=== PATIENT | male | born 1990 | race Caucasian/White ===

== ENCOUNTER 2017-07-23 20:26 | Emergency (ER) | payer SELFPAY ==
[2017-07-23 20:35] VITALS: BP 113/75; BMI 18.4
--- NOTE | 2017-07-23 21:40 | DR.GENAD ---
HPI - PCP Primary Care Physician: Christian - HPI Comment HPI Comment: SWELLING AND PAIN SINCE IT HAPPEN. ROM INTACT. - Complaint/Symptoms Chief Complaint Doctors Comments: CRUSH INJURY LEFT FOREARM SUSTAINED YESTERDAY WHEN CAR DOOR CLOSE ON PATIENTS FOREARM. Chief Complaint:: left forearm edematous and warm to touch; possible fx Self Treatment fo Chief Complaint: ibuprofen x 3 hours ago - Nurses notes reviewed Nurses Notes Review: Yes - Source History Provided: Patient - Mode of Arrival Mode of Arrival: Ambulatory - Timing Onset of Chief Complaint: 07/22/17 Came on: Suddenly - Duration Duration: Constant Duration: Days - Severity Severity: Moderate PMH - PMH Past Medical History: No Past Medical History: Depression Past Medical History Comment: pancreatitis Past Surgical History: No - Family History History of Family Medical Conditions: Yes Family Medical History: Diabetes Mellitus, Hypertension - Social History Does patient currently use any type of tobacco product: Yes Have you used tobacco products in the last 12 months: Yes Type of Tobacco Use: Smokeless Alcohol Use: None Do you use any recreational Drugs:: No Lives With: Mom Lives Where: Home - infectious screening In the last 2 months have you had wt loss of >10#?: NO Have you had fever, night sweats or hemotysis?: No Have you traveled outside the country in the last 6 months?: No Isolation: Standard ROS - Review of Systems Constitutional: No Symptoms Reported Eyes: No Symptoms Reported ENTM: No Symptoms Reported Respiratoy: No Symptoms Reported Cardiovascular: No Symptoms Reported Gastrointestinal/Abdominal: No Symptoms Reported Genitourinary: No Symptoms Reported Neurological: No Symptoms Reported Musculoskeletal: Muscle Pain, Left, Forearm (SWELLING) Integumentary: Change in Color Hematologic/Lymphatic: No Symptoms Reported Endocrine: No Symptoms Reported All Other Systems: Reviewed and Negative PE - Vital Signs Vitals: Pulse Rate 86 Respiratory Rate 22 Blood Pressure 113/75 O2 Sat by Pulse Oximetry 100 - General Limitations: No Limitations General Appearance: Alert - Head Head Exam: Normal Inspection - Eyes Eye exam: Normal Appearance - ENT ENT Exam: Normal External Ear Exam - Neck Neck Exam: Trachea Midline - Chest Chest Inspection: Symmetric Chest Wall Rise - Respiratory Respiratory Exam: Normal Lung Sounds Bilat Respiratory Exam: Bilateral Clear to Auscultation - Cardiovascular Cardiovascular Exam: Regular Rate, Normal Rhythm, Normal Heart Sounds - Abdominal Exam Abdominal Exam: Normal Bowel Sounds, Soft. negative: Tenderness - Extremities Extremities Exam: Full ROM, Tenderness (LT FOREARM) - Back Back Exam: Normal Inspection - Neurologic Neurological Exam: Alert, Oriented X3 - Psychiatric Psychiatric Exam: Normal Affect, Normal Mood - Skin Skin Exam: Erythema MDM - Differential Diagnosis Differential Diagnosis: CONTUSION, MUSCLE STRAIN, FRACTURE LEFT FOREARM. Course - Treatment Treatment: SEE ORDERS. ARM SLING APPLIED IN ED. - Education/Counseling Education/Counseling: Patient, Education Educated On: Diagnosis, Needs for Follow Up ROR - XRAY XRAY Interpreted by: Radiologist XRAY Findings: REPORT DISCUSS WITH PATIENT. - Diagnosis Discharge Problem: Contusion of left forearm Qualifiers: Encounter type: initial encounter Qualified Code(s): S50.12XA - Contusion of left forearm, initial encounter Muscle strain of forearm Qualifiers: Encounter type: initial encounter Laterality: unspecified laterality Qualified Code(s): S56.919A - Strain of unspecified muscles, fascia and tendons at forearm level, unspecified arm, initial encounter Crushing injury of forearm, left Qualifiers: Encounter type: initial encounter Qualified Code(s): S57.82XA - Crushing injury of left forearm, initial encounter - Discharge Plan Condition: Stable Prescriptions: Ibuprofen [MOTRIN TAB 600 MG *] 600 mg PO TID PRN #20 tab PRN Reason: Pain/Inflammation - Follow ups/Referrals Follow ups/Referrals: Tin Gonzales [Primary Care Provider] - 2 days - Instructions Instructions: Musculoskeletal Pain Additional Instructions: RETURN TO ED IF WORSE
--- NOTE | 2017-07-23 22:48 | RAD ---
Left forearm, AP and lateral Indication: Arm pain after injury Findings: No cortical disruption or malalignment of the radius or ulna. No significant soft tissue ab normality. Impression: No acute fracture or subluxation of the left forearm. Reported By:
== END 2017-07-23 23:05 | disposition home or self-care (01) ==
LOC: ER 20:38
DX: S56.919A Strain of unspecified muscles, fascia and tendons at forearm level, unspecified arm, initial encounter (principal); S57.82XA Crushing injury of left forearm, initial encounter; X58.XXXA Exposure to other specified factors, initial encounter; Y92.9 Unspecified place or not applicable
CPT/HCPCS: 73090; 99282; 99283

== ENCOUNTER 2017-10-17 18:14 | Emergency (ER) | payer SELFPAY ==
[2017-10-17 18:32] VITALS: BMI 17.7
--- NOTE | 2017-10-17 18:54 | DR.GENAD ---
HPI - PCP Primary Care Physician: NFD - Complaint/Symptoms Chief Complaint Doctors Comments: Patient admits to dysuria and penile discharge for one week. He thinks he has a STD. He admits to having unprotected sexual encounters. Chief Complaint:: PT STATES " I THINK I MAY HAVE AN STD MY INSIDES ARE BURNING AND I HAVE BEEN HAVING A YELLOW MUCOUS DRAINAGE AND HE HAD A FEVER AND LAID UP ON THE BED ALL WEEK". - Source History Provided: Patient - Mode of Arrival Mode of Arrival: Ambulatory - Timing Onset of Chief Complaint: 10/14/17 PMH - PMH Past Medical History: No Past Medical History: Depression Past Surgical History: No - Family History History of Family Medical Conditions: No Family Medical History: Diabetes Mellitus, Hypertension - Social History Does patient currently use any type of tobacco product: No Have you used tobacco products in the last 12 months: No Type of Tobacco Use: Smokeless Does any household member use tobacco: No Alcohol Use: None Do you use any recreational Drugs:: No Lives With: Family Lives Where: Home - infectious screening In the last 2 months have you had wt loss of >10#?: NO Have you had fever, night sweats or hemotysis?: No Have you traveled outside the country in the last 6 months?: No Isolation: Standard ROS - Review of Systems Eyes: No Symptoms Reported ENTM: No Symptoms Reported Respiratoy: No Symptoms Reported Cardiovascular: No Symptoms Reported Gastrointestinal/Abdominal: No Symptoms Reported Genitourinary: No Symptoms Reported Neurological: No Symptoms Reported Musculoskeletal: No Symptoms Reported Integumentary: No Symptoms Reported Hematologic/Lymphatic: No Symptoms Reported Endocrine: No Symptoms Reported Psychiatric: No Symptoms Reported All Other Systems: Reviewed and Negative PE - Vital Signs Vitals: Temperature 96.9 F Pulse Rate 88 Respiratory Rate 18 Blood Pressure 115/75 O2 Sat by Pulse Oximetry 100 - General General Appearance: Alert, In No Apparent Distress - Head Head Exam: Normal Inspection, Atraumatic - Eyes Eye exam: Normal Appearance, PERRL, EOMI - ENT ENT Exam: Normal Exam External Ear Exam: Normal External Inspection TM/Canal Exam: Bilateral Normal Nose Exam: Normal Nose Exam Mouth Exam: Normal Inspection Throat Exam: Normal Inspection - Neck Neck Exam: Normal Inspection, Full ROM - Chest Chest Inspection: Normal Inspection - Respiratory Respiratory Exam: Normal Lung Sounds Bilat Respiratory Exam: Bilateral Clear to Auscultation - Cardiovascular Cardiovascular Exam: Regular Rate, Normal Rhythm - Abdominal Exam Abdominal Exam: Normal Inspection, Normal Bowel Sounds Abdominal Tenderness: negative: RUQ, RLQ, LUQ, LLQ, Epigastrium, Suprapubic, Diffuse, Mild, Moderate, Severe, Other - Extremities Extremities Exam: Normal Inspection, Full ROM - Back Back Exam: Normal Inspection - Neurologic Neurological Exam: Alert, Oriented X3, CN II-XII Intact - Psychiatric Psychiatric Exam: Normal Affect - Skin Skin Exam: Warm, Dry, Intact Course - Reevaluation 1st: Unchanged ROR - Labs Reviewed Laboratory Results Reviewed?: Yes (Urine:WBC 30-40, Leuk Esterace 3+, 2+blood) Laboratory: Specimen Type Clean catch urine 10/17/17 18:55 Urine Color Yellow (YELLOW) 10/17/17 18:55 Urine Appearance Hazy (CLEAR) 10/17/17 18:55 Urine pH 6.0 (5.0 - 8.0) 10/17/17 18:55 Ur Specific [place] 1.025 (1.000-1.030) 10/17/17 18:55 Urine Protein 2+ (NEGATIVE) 10/17/17 18:55 Urine Glucose (UA) Negative (NEGATIVE) 10/17/17 18:55 Urine Ketones Negative (NEGATIVE) 10/17/17 18:55 Urine Occult Blood 2+ (NEGATIVE) 10/17/17 18:55 Urine Nitrite Negative (NEGATIVE) 10/17/17 18:55 Urine Bilirubin Negative (NEGATIVE) 10/17/17 18:55 Urine Urobilinogen 1+ (NORMAL) 10/17/17 18:55 Ur Leukocyte Esterase 3+ (NEGATIVE) 10/17/17 18:55 Urine RBC 0-2 /HPF (NEGATIVE) 10/17/17 18:55 Urine WBC 30-40 /HPF (NEGATIVE) 10/17/17 18:55 Ur Squamous Epith Cells Negative /HPF (NEGATIVE) 10/17/17 18:55 Urine Bacteria Trace /HPF (NEGATIVE) 10/17/17 18:55 Ur Culture Indicated? Yes/culture set up 10/17/17 18:55 - Diagnosis Discharge Problem: Presumptive STD UTI (urinary tract infection) Qualifiers: Urinary tract infection type: acute cystitis Hematuria presence: with hematuria Qualified Code(s): N30.01 - Acute cystitis with hematuria - Discharge Plan Condition: Stable - Follow ups/Referrals Follow ups/Referrals: NFD,None [Primary Care Provider] - 3 days - Instructions
[2017-10-17 19:03] LABS: BILIRUBIN,URINE NEGATIVE (NEGATIVE); BLOOD/HEMOGLOBIN,URINE 2+ (NEGATIVE); GLUCOSE, URINE NEGATIVE (NEGATIVE); KETONES,URINE NEGATIVE (NEGATIVE); LEUKOCYTE ESTERASE ,URINE 3+ (NEGATIVE); NITRITES,URINE NEGATIVE (NEGATIVE); PROTEIN,URINE 2+ (NEGATIVE); UROBILINOGEN,URINE 1+ (NORMAL)
[2017-10-17 19:10] LABS: APPEARANCE,URINE HAZY (CLEAR); BACTERIA,URINE TRACE /HPF (NEGATIVE); COLOR,URINE YELLOW (YELLOW); RBC,URINE 0-2 /HPF (NEGATIVE); SQUAMOUS EPITHELIAL CELL,UR NEGATIVE /HPF (NEGATIVE)
[2017-10-17] MEDS ORDERED: ROCEPHIN VIAL 500 MG IM ONE (19:57)
[2017-10-17] MEDS ORDERED: ROCEPHIN VIAL 500 MG ONE (20:00)
[2017-10-17 20:19] VITALS: BP 123/86
[2017-10-21 07:39] LABS: HCV VIRAL LOG <1.2 log IU
== END 2017-10-17 20:20 | disposition home or self-care (01) ==
LOC: ER 18:27
DX: N30.01 Acute cystitis with hematuria (principal)
CPT/HCPCS: 81001; 87086; 87522; 96372; 99282; J0696

== ENCOUNTER 2018-10-14 19:52 | Inpatient (IN) ==
[2018-10-14] MEDS ORDERED: NS 1000 ML 1,000 ML IV ONE (21:01)
[2018-10-14] MEDS ORDERED: NS 1000 ML 1,000 ML ONE (21:01)
[2018-10-14] MEDS ORDERED: VANCOMYCIN HCL 1 GM VIAL 1 G in D5W 250 ML IV 250 ML IV ONE (21:50)
[2018-10-14] MEDS ORDERED: VANCOMYCIN 1 GRAM PREMIX (ADDVANTAGE) 250 ML IV ONE (21:52)
--- NOTE | 2018-10-14 21:56 | DR.EXTPAIN ---
HPI Time seen Time Seen by Provider: 10/14/18 21:21 PCP Primary Care Physician: ARMANDO HPI Comment HPI Comment: STREAKING UP RUE NOTED. PATIENT IN PAIN. RUNNING FEVER AT HOME. Complaint/Symptoms Chief Complaint Doctor Comments: ABSCESS RIGHT HAND, SICE OF AN EGG AND CELLULITIS RT HAND AND FOREARM TIMES 4 DAYS. Chief Complaint:: PT HAS ABCESS TO RIGHT HAND FOR 3 OR 4 DAYS Self Treatment fo Chief Complaint: LANCED IT AT HOME TO GET PUSS OUT Nurses notes reviewed Nurses Notes Review: Yes Source History Provided: Patient Mode of arrival Mode of Arrival: Ambulatory Timing Onset of Chief Complaint: 10/11/18 Context History of: None Associated signs and symptoms Associated Signs and Symptoms: Pain, Fever, Swelling and Headache PMH PMH Past Medical History: No Past Surgical History: No Family History History of Family Medical Conditions: Yes Family Medical History: Diabetes Mellitus and Hypertension Social History Does patient currently use any type of tobacco product: Yes Have you used tobacco products in the last 12 months: Yes Type of Tobacco Use: Smokeless Does any household member use tobacco: No Alcohol Use: None Do you use any recreational Drugs:: Yes (THC) Lives With: Family Lives Where: Home infectious screening In the last 2 months have you had wt loss of >10#?: NO Have you had fever, night sweats or hemotysis?: No Have you traveled outside the country in the last 6 months?: No Isolation: Standard ROS Review of Systems Constitutional: Fever and Fatigue Eyes: No Symptoms Reported ENTM: No Symptoms Reported Respiratoy: No Symptoms Reported and Wheezing Gastrointestinal/Abdominal: No Symptoms Reported Genitourinary: No Symptoms Reported Neurological: No Symptoms Reported Musculoskeletal: Right, Elbow, Forearm, Wrist and Hand Integumentary: Other (ABSCESS, SIZEE OF EGG AND CELLULITIS FROM RT HAND TO RT ELBOW WITH STRAKING BEYOND THAT.) Hematologic/Lymphatic: No Symptoms Reported Endocrine: No Symptoms Reported Psychiatric: No Symptoms Reported All Other Systems: Reviewed and Negative PE Vital Signs Vitals: Temperature 98.1 F Pulse Rate [Radial] 85 Pulse Rate 104 Respiratory Rate 18 Blood Pressure [Left Arm] 110/57 Blood Pressure 127/79 O2 Sat by Pulse Oximetry 100 General Limitations: No Limitations Head Head Exam: Normal Inspection Eyes Eye exam: Normal Appearance ENT ENT Exam: Normal Exam Neck Neck Exam: Normal Inspection and Trachea Midline; negative Tenderness, Meningismus and Lymphadenopathy Chest Chest Inspection: Symmetric Chest Wall Rise Respiratory Respiratory Exam: Normal Lung Sounds Bilat Respiratory Exam: Bilateral: Clear to Auscultation Cardiovascular Cardiovascular Exam: Regular Rate and Normal Rhythm Abdominal Exam Abdominal Exam: Normal Inspection and Normal Bowel Sounds Extremities Extremities Exam: Tenderness (ABSCESS SIZE OF CHICKEN EGG POSTERIOR LATELAL ASPECT OF HAND. AT BASE OF 4TH AND 5TH FINGER ALL THE WAY TO WRIST. REDNESS FROM THERE TO FOREARM AND STREAKING TO ABOVE ELBOW.) Neurological Neurological Exam: Alert and Oriented X3; negative Motor Sensory Deficit Psychiatric Psychiatric Exam: Normal Affect and Anxious Skin Skin Exam: Erythema Type of Lesion: Abscess Distribution: RUE Description: Tenderness, Erythematous, Swelling, Fluctuant and Indurated MDM Differential Diagnosis Differential Diagnosis: Other (ABSCESS AND CELLULITIS RIGHT HAND AND FOREARM.) COURSE Treatment Treatment: SEE ORDERS. Education/Counseling Education/Counseling: Patient Educated On: Diagnosis ROR Labs Reviewed Laboratory Results Reviewed?: Yes Result Diagrams: 10/15/18 05:12 10/15/18 05:12 Laboratory: 10/15/18 01:12 Hand - Right Gram Stain - Final WBC 13.5 X10^3/uL (3.6-10.0) H 10/15/18 05:12 RBC 3.87 X10^6/uL (4.7-6.0) L 10/15/18 05:12 Hgb 11.6 g/dL (13.5-18.0) L 10/15/18 05:12 Hct 34.5 % (42.0-54.0) L 10/15/18 05:12 MCV 89.0 fL (80.0-100.0) 10/15/18 05:12 MCH 29.9 pg (27.0-34.0) 10/15/18 05:12 MCHC 33.6 g/dL (33.0-35.0) 10/15/18 05:12 RDW 12.6 % (11.6-16.5) 10/15/18 05:12 Plt Count 398 X10^3/uL (150.0-450.0) 10/15/18 05:12 MPV 8.0 fL (7.4-11.0) 10/15/18 05:12 Neut % (Auto) 71.9 % (42.0-75.0) 10/15/18 05:12 Lymph % (Auto) 15.5 % (21.0-51.0) L 10/15/18 05:12 [place] % (Auto) 9.9 % (0.0-13.0) 10/15/18 05:12 Eos % (Auto) 2.3 % (0.9-2.9) 10/15/18 05:12 Baso % (Auto) 0.4 % (0.2-1.0) 10/15/18 05:12 Neut # (Auto) 9.7 x10^3/uL (2.2-4.8) H 10/15/18 05:12 Lymph # (Auto) 2.1 X10^3/uL (1.3-2.9) 10/15/18 05:12 [place] # (Auto) 1.3 x10^3/uL (0.3-0.8) H 10/15/18 05:12 Eos # (Auto) 0.3 x10^3/uL (0.0-0.2) H 10/15/18 05:12 Baso # (Auto) 0.1 X10^3/uL (0.0-0.1) 10/15/18 05:12 Absolute Nucleated RBC 0.1 /100WBC 10/15/18 05:12 Sodium 142 mmol/L (136-145) 10/15/18 05:12 Corrected Sodium TNP 10/15/18 05:12 Potassium 3.7 mmol/L (3.5-5.1) 10/15/18 05:12 Chloride 108 mmol/L (98-107) H 10/15/18 05:12 Carbon Dioxide 26.2 mmol/L (21-32) 10/15/18 05:12 BUN 6 mg/dL (7-18) L 10/15/18 05:12 Creatinine 0.64 mg/dL (0.70-1.30) L 10/15/18 05:12 Est GFR (MDRD) Af Amer > 60 (>60) 10/15/18 05:12 Est GFR (MDRD) Non-Af > 60 (>60) 10/15/18 05:12 Glucose 106 mg/dL (65-99) H 10/15/18 05:12 Lactic Acid 1.7 mmol/L (0.4-2.0) 10/14/18 21:47 Calcium 7.8 mg/dL (8.5-10.1) L 10/15/18 05:12 Corrected Calcium 8.7 mg/dL (8.5-10.1) 10/15/18 05:12 Magnesium 1.8 mg/dL (1.7-2.9) 10/15/18 05:12 Total Bilirubin 0.20 mg/dL (0.2-1.0) 10/15/18 05:12 AST 17 Units/L (15-37) 10/15/18 05:12 ALT 21 Units/L (12-78) 10/15/18 05:12 Alkaline Phosphatase 70 Units/L (46-116) 10/15/18 05:12 Total Protein 6.4 g/dL (6.4-8.2) 10/15/18 05:12 Albumin 2.9 g/dL (3.4-5.0) L 10/15/18 05:12 Globulin 3.5 g/dL (2.5-4.5) 10/15/18 05:12 Albumin/Globulin Ratio 0.8 Ratio (1.1-2.1) L 10/15/18 05:12 XRAY XRAY Interpreted by: Radiologist XRAY Findings: REPORT DISCUSS WITH PATIENT. Procedures Incision and Drainage Blade Size: 11 I & D Procedure: betadine prep, sterile dressing applied and gauze wick placed Progress: I&D DONE ON ABSCESS AFTER NUMBING ABSCESS WITH 3CC OF 1% LIDOCAINE. 3CC PUS AND BLOOD DRAIN FROM ABSCESS. Diagnosis Discharge Problem: Abscess Cellulitis Qualifiers: Site of cellulitis: extremity Site of cellulitis of extremity: upper extremity Laterality: right Qualified Code(s): L03.113 - Cellulitis of right upper limb Instructions Instructions: Cellulitis, Adult
[2018-10-14] MEDS ORDERED: TORADOL 60 MG VIAL IVP ONE (21:57)
[2018-10-14] MEDS ORDERED: TORADOL 30 MG VIAL ONE (21:59)
[2018-10-14 22:08] LABS: BASOPHILS # (AUTO) 0.1 X10^3/uL (0.0-0.1); BASOPHILS % (AUTO) 0.7 % (0.2-1.0); EOSINOPHILS # (AUTO) 0.1 x10^3/uL (0.0-0.2); EOSINOPHILS % (AUTO) 0.5 % (0.9-2.9); HEMATOCRIT 32.8 % (42.0-54.0); HEMOGLOBIN 11.2 g/dL (13.5-18.0); LYMPHOCYTES # (AUTO) 1.3 X10^3/uL (1.3-2.9); LYMPHOCYTES % (AUTO) 7.8 % (21.0-51.0); MEAN CORPUSCULAR HEMOGLOBIN 30.6 pg (27.0-34.0); MEAN CORPUSCULAR HGB CONC 34.1 g/dL (33.0-35.0); MEAN CORPUSCULAR VOLUME 89.5 fL (80.0-100.0); MEAN PLATELET VOLUME 7.4 fL (7.4-11.0); MONOCYTES # (AUTO) 1.1 x10^3/uL (0.3-0.8); MONOCYTES % (AUTO) 6.4 % (0.0-13.0); NEUTROPHILS % (AUTO) 84.6 % (42.0-75.0); PLATELET COUNT 402 X10^3/uL (150.0-450.0); RED BLOOD COUNT 3.67 X10^6/uL (4.7-6.0); RED CELL DISTRIBUTION WIDTH 12.4 % (11.6-16.5); WHITE BLOOD COUNT 16.5 X10^3/uL (3.6-10.0)
[2018-10-14 22:22] LABS: ALANINE AMINOTRANSFERASE 21 Units/L (12-78); ALBUMIN 3.3 g/dL (3.4-5.0); ALKALINE PHOSPHATASE 72 Units/L (46-116); ASPARTATE AMINO TRANSFERASE 16 Units/L (15-37); BLOOD UREA NITROGEN 8 mg/dL (7-18); CALCIUM 7.9 mg/dL (8.5-10.1); CARBON DIOXIDE 27.7 mmol/L (21-32); CHLORIDE 104 mmol/L (98-107); COR CA(FOR HYPOALB) 8.5 mg/dL (8.5-10.1); COR NA(FOR HYPERGLY) 142 mmol/L (136-145); CREATININE 0.75 mg/dL (0.70-1.30); SODIUM 141 mmol/L (136-145); TOTAL PROTEIN 6.7 g/dL (6.4-8.2); eGFR NON BLACK RACES > 60 (>60)
[2018-10-14 22:28] LABS: LACTIC ACID 1.7 mmol/L (0.4-2.0)
[2018-10-15] MEDS ORDERED: XYLOCAINE 1 % (PLAIN) ONE (00:08)
[2018-10-15] MEDS ORDERED: PHENERGAN TAB 25 MG PO PRN (01:35)
[2018-10-15] MEDS ORDERED: NS 1000 ML 1,000 ML ONE (02:11)
[2018-10-15] MEDS: NS 1000 ML 1,000 ML IV SCH ×3 (02:20→18:42)
[2018-10-15] MEDS ORDERED: POTASSIUM CHL 40 MEQ/NS 0.45% 500 ML IV PRN (02:22)
[2018-10-15] MEDS ORDERED: K-DUR TAB 20 MEQ PO PRN (02:22)
[2018-10-15] MEDS ORDERED: MICRO K EXTEN CAP 10 MEQ PO PRN (02:22)
[2018-10-15] MEDS ORDERED: KLOR-CON PO PRN (02:22)
[2018-10-15] MEDS ORDERED: POTASSIUM CHL 60 MEQ/NS 0.45% 500 ML IV PRN (02:22)
[2018-10-15] MEDS ORDERED: MAGNESIUM SULFATE 1 GRAM/100 mL PREMIX 1 GM/100 ML BAG IV PRN (02:22)
[2018-10-15] MEDS ORDERED: POTASSIUM CHLORIDE LIQ 20 MEQ UDC PO PRN (02:22)
[2018-10-15] MEDS ORDERED: K-RIDER 10 MEQ/NS 100 ML 10 MEQ/100 ML BAG IV PRN (02:22)
[2018-10-15] MEDS ORDERED: K-DUR TAB 20 MEQ PO ONE (02:41)
[2018-10-15 03:03] VITALS: BMI 17.5
[2018-10-15] MEDS: ZOSYN VIAL 3.375 GRAMS 3.375 G in NS 100 ML IV + SPIKE MINIBAG* 100 ML IV SCH ×3 (05:03→21:00)
[2018-10-15 05:54] LABS: BASOPHILS # (AUTO) 0.1 X10^3/uL (0.0-0.1); BASOPHILS % (AUTO) 0.4 % (0.2-1.0); EOSINOPHILS # (AUTO) 0.3 x10^3/uL (0.0-0.2); EOSINOPHILS % (AUTO) 2.3 % (0.9-2.9); HEMATOCRIT 34.5 % (42.0-54.0); HEMOGLOBIN 11.6 g/dL (13.5-18.0); LYMPHOCYTES # (AUTO) 2.1 X10^3/uL (1.3-2.9); LYMPHOCYTES % (AUTO) 15.5 % (21.0-51.0); MEAN CORPUSCULAR HEMOGLOBIN 29.9 pg (27.0-34.0); MEAN CORPUSCULAR HGB CONC 33.6 g/dL (33.0-35.0); MONOCYTES # (AUTO) 1.3 x10^3/uL (0.3-0.8); MONOCYTES % (AUTO) 9.9 % (0.0-13.0); NEUTROPHILS # (AUTO) 9.7 x10^3/uL (2.2-4.8); NEUTROPHILS % (AUTO) 71.9 % (42.0-75.0); PLATELET COUNT 398 X10^3/uL (150.0-450.0); RED BLOOD COUNT 3.87 X10^6/uL (4.7-6.0); RED CELL DISTRIBUTION WIDTH 12.6 % (11.6-16.5); WHITE BLOOD COUNT 13.5 X10^3/uL (3.6-10.0)
[2018-10-15 06:17] LABS: ALANINE AMINOTRANSFERASE 21 Units/L (12-78); ALBUMIN 2.9 g/dL (3.4-5.0); ALKALINE PHOSPHATASE 70 Units/L (46-116); ASPARTATE AMINO TRANSFERASE 17 Units/L (15-37); BLOOD UREA NITROGEN 6 mg/dL (7-18); CALCIUM 7.8 mg/dL (8.5-10.1); CARBON DIOXIDE 26.2 mmol/L (21-32); CHLORIDE 108 mmol/L (98-107); COR CA(FOR HYPOALB) 8.7 mg/dL (8.5-10.1); CREATININE 0.64 mg/dL (0.70-1.30); SODIUM 142 mmol/L (136-145); TOTAL PROTEIN 6.4 g/dL (6.4-8.2); eGFR NON BLACK RACES > 60 (>60)
[2018-10-15] MEDS ORDERED: VANCOMYCIN HCL 500 MG VIAL 500 MG in D5W 100 ML IV 100 ML IV SCH (09:00)
[2018-10-15] MEDS: TORADOL 30 MG VIAL IVP PRN ×2 (09:19→20:52)
[2018-10-15] MEDS: VANCOMYCIN 1 GRAM PREMIX (ADDVANTAGE) 250 ML IV SCH ×2 (09:19→20:46)
[2018-10-15] MEDS: LOVENOX INJ 30 MG SYR SC SCH ×2 (09:26→20:46)
--- NOTE | 2018-10-15 10:02 | DR.H&P ---
H&P - History & Physical for Day of: H&P Date: 10/15/18 - Chief Complaint Chief Complaint: RIGHT HAND ABSCESS, REDNESS - History of Present Illness History of Present Illness: IS A 28 YEAR OLD WHITE MALE WHO PRESENTED TO THE EMERGENCY ROOM WITH COMPLAINTS OF AN ABSCESS TO THE RIGHT HAND, APPROXIMATELY THE SIZE OF A CHICKEN EGG WITH ASSOCIATED REDNESS AND STREAKING UP THE RIGHT ARM. HE REPORTS FEVER AT HOME. SYMPTOMS HAVE BEEN PRESENT SINCE 10/11/18. PATIENT REPORTS LANCING ABSCESS AT HOME WITH PURULENT DRAINAGE NOTED. ON ARRIVAL, VITALS WERE 98.8-104-18-99%-127/79. LABS WERE OBTAINED. ABNORMAL LAB VALUES INCLUDE THE FOLLOWING: WBC 16.5, RBC 3.67, HGB 11.2, HCT 32.8, POTASSIUM 3.3, GLUCOSE 134, CALCIUM 7.9, ALBUMIN 3.3. WOUND CULTURES AND BLOOD CULTURES WERE COLLECTED. HE WAS GIVEN A NORMAL SALINE BOLUS, VANCOMYCIN 1GM IV X 1 DOSE, TORADOL 30MG IV X 1, AND K-DUR 40MEQ PO IN THE ER. HE WAS ADMITTED FOR FURTHER EVALUATION AND TREATMENT OF RIGHT HAND ABSCESS AND CELLULITIS. HE WAS STARTED ON NORMAL SALINE AT 125ML/HR, VANCOMYCIN 1GM IV Q12H, ZOSYN 3.375G IV TID, TORADOL 30MG IV Q6H PRN, AND LOVENOX 30MG SC BID. WE WILL CONSULT FOR POSSIBLE I&D. OTHERWISE, WE WILL FOLLOW UP WITH AM LABS AND CONTINUE TO MONITOR. - Past Medical History Past Medical History: Depression - Family History Family Medical History: Diabetes Mellitus, Hypertension - Social History Does patient currently use any type of tobacco product: Yes Have you used tobacco products in the last 12 months: Yes Type of Tobacco Use: Smokeless How many years tobacco product used: 17 Does any household member use tobacco: No Alcohol Use: None Drug Use: Marijuana - Medications Home Medications: chocolate flavor Allergy (Verified 05/07/18 17:32) CONTINUE taking the following medications NK 10/15/18 [History] - Review of Systems Constitutional: See HPI, Fever Eyes: No Symptoms Reported ENT: No Symptoms Reported Respiratory: No Symptoms Reported Cardiovascular: No Symptoms Reported Gastrointestinal: No Symptoms Reported Genitourinary: No Symptoms Reported Musculoskeletal: Arm Pain, Hand Pain Skin: Wound (RIGHT HAND ABSCESS, REDNESS, RIGHT ARM REDNESS ) Neurological: No Symptoms Reported - Physical Exam Vital Signs: Temperature 98 F Pulse Rate [Radial] 70 Pulse Rate 104 Respiratory Rate 20 Blood Pressure [Right Arm] 110/68 Blood Pressure [Left Arm] 110/57 Blood Pressure 127/79 O2 Sat by Pulse Oximetry 100 Oriented: Normal Eyes: Normal Ear: Normal Nose: Normal Throat: Normal Respiratory: Clear Throughout Cardiovascular: Tachycardia : Normal Auscultation: Bowel Sounds: Normal Palpation: Normal Tenderness: Normal Skin: Wound (RIGHT HAND ABSCESS, REDNESS, RIGHT ARM REDNESS ) Musculoskeletal: Right, Hand, Tender Psychiatric: Normal Mood Description: Calm Affect: Normal Speech Pattern: Clear - Assessment/Plan (1) Abscess Status: Acute Plan: CONSULT FOR I&D, IV ANTIBIOITICS, WOUND CARE, CONTINUE TO MONITOR (2) Cellulitis Qualifiers: Site of cellulitis: extremity Site of cellulitis of extremity: upper extremity Laterality: right Qualified Code(s): L03.113 - Cellulitis of right upper limb Status: Acute Plan: IV ANTIBIOTICS, WOUND CARE, CONTINUE TO MONITOR - Allergies Allergies/Adverse Reactions: Allergies Allergy/AdvReac Type Severity Reaction Status Date / Time chocolate flavor Allergy Verified 05/07/18 17:32
[2018-10-15 18:40] LABS: CKMB % 1.4 % (<4); CREATINE KINASE 71 Units/L (39-308); CREATINE KINASE MB < 1.0 ng/mL (0-4.0); TROPONIN I < 0.02 ng/mL (0-1.5)
[2018-10-16] MEDS: NS 1000 ML 1,000 ML IV SCH (03:34)
[2018-10-16] MEDS: ZOSYN VIAL 3.375 GRAMS 3.375 G in NS 100 ML IV + SPIKE MINIBAG* 100 ML IV SCH (05:25)
[2018-10-16 06:34] LABS: BASOPHILS # (AUTO) 0.1 X10^3/uL (0.0-0.1); BASOPHILS % (AUTO) 1.5 % (0.2-1.0); EOSINOPHILS # (AUTO) 0.4 x10^3/uL (0.0-0.2); EOSINOPHILS % (AUTO) 4.1 % (0.9-2.9); HEMATOCRIT 34.3 % (42.0-54.0); HEMOGLOBIN 11.6 g/dL (13.5-18.0); LYMPHOCYTES # (AUTO) 1.5 X10^3/uL (1.3-2.9); LYMPHOCYTES % (AUTO) 15.2 % (21.0-51.0); MEAN CORPUSCULAR HEMOGLOBIN 30.6 pg (27.0-34.0); MEAN CORPUSCULAR HGB CONC 33.9 g/dL (33.0-35.0); MEAN CORPUSCULAR VOLUME 90.4 fL (80.0-100.0); MEAN PLATELET VOLUME 7.9 fL (7.4-11.0); MONOCYTES # (AUTO) 0.9 x10^3/uL (0.3-0.8); NEUTROPHILS # (AUTO) 6.8 x10^3/uL (2.2-4.8); NEUTROPHILS % (AUTO) 70.2 % (42.0-75.0); PLATELET COUNT 395 X10^3/uL (150.0-450.0); RED BLOOD COUNT 3.79 X10^6/uL (4.7-6.0); RED CELL DISTRIBUTION WIDTH 12.4 % (11.6-16.5); WHITE BLOOD COUNT 9.6 X10^3/uL (3.6-10.0)
[2018-10-16 06:43] LABS: ALANINE AMINOTRANSFERASE 25 Units/L (12-78); ALBUMIN 2.8 g/dL (3.4-5.0); ALKALINE PHOSPHATASE 66 Units/L (46-116); ASPARTATE AMINO TRANSFERASE 17 Units/L (15-37); BLOOD UREA NITROGEN 4 mg/dL (7-18); CALCIUM 7.9 mg/dL (8.5-10.1); CARBON DIOXIDE 25.8 mmol/L (21-32); CHLORIDE 106 mmol/L (98-107); COR CA(FOR HYPOALB) 8.9 mg/dL (8.5-10.1); CREATININE 0.71 mg/dL (0.70-1.30); SODIUM 142 mmol/L (136-145); TOTAL PROTEIN 6.4 g/dL (6.4-8.2); eGFR NON BLACK RACES > 60 (>60)
[2018-10-16] MEDS ORDERED: PHARMACY COMMENT IV SCH (08:45)
[2018-10-16] MEDS: VANCOMYCIN 1 GRAM PREMIX (ADDVANTAGE) 250 ML IV SCH (08:55)
[2018-10-16] MEDS ORDERED: BACTROBAN TOPICAL OINT ONE (09:38)
[2018-10-16] MEDS ORDERED: BACITRACIN VIAL ONE (09:38)
[2018-10-16] MEDS ORDERED: LR 1000 ML IV 1,000 ML IV ONE (09:38)
[2018-10-16] MEDS ORDERED: FENTANYL INJ 100 mcg ONE (10:01)
[2018-10-16] MEDS ORDERED: XYLOCAINE 1 % (PLAIN) ONE (10:12)
[2018-10-16 13:50] VITALS: BP 118/77
[2018-10-16] MEDS: LOVENOX INJ 30 MG SYR SC SCH (13:50)
[2018-10-16] MEDS ORDERED: DIPRIVAN VIAL ONE (15:09)
[2018-10-16] MEDS ORDERED: XYLOCAINE 2 % (PLAIN) ONE (15:09)
[2018-10-16] MEDS ORDERED: VERSED ONE (15:09)
--- NOTE | 2018-10-31 02:11 | DR.CARTERD ---
- Discharge Summary for: Discharge Summary for Date of:: 10/16/18 - Admission Date Date of Admission: 10/15/18 - Admission Diagnoses Admission Diagnosis: (1) Cellulitis (2) Abscess - Discharge Date Discharge Date: 10/16/18 - Discharge Diagnoses Discharge Diagnosis: (1) Cellulitis (2) Abscess - Hospital Course Hospital Course: DAY ONE, IS A 28 YEAR OLD WHITE MALE WHO PRESENTED TO THE EMERGENCY ROOM WITH COMPLAINTS OF AN ABSCESS TO THE RIGHT HAND, APPROXIMATELY THE SIZE OF A CHICKEN EGG WITH ASSOCIATED REDNESS AND STREAKING UP THE RIGHT ARM. HE REPORTED FEVER AT HOME. SYMPTOMS HAVE BEEN PRESENT SINCE 10/11/18. PATIENT REPORTED LANCING ABSCESS AT HOME WITH PURULENT DRAINAGE NOTED. ON ARRIVAL, VITALS WERE 98.8-104-18-99%-127/79. LABS WERE OBTAINED. ABNORMAL LAB VALUES INCLUDED THE FOLLOWING: WBC 16.5, RBC 3.67, HGB 11.2, HCT 32.8, POTASSIUM 3.3, GLUCOSE 134, CALCIUM 7.9, ALBUMIN 3.3. WOUND CULTURES AND BLOOD CULTURES WERE COLLECTED. HE WAS GIVEN A NORMAL SALINE BOLUS, VANCOMYCIN 1GM IV X 1 DOSE, TORADOL 30MG IV X 1, AND K-DUR 40MEQ PO IN THE ER. HE WAS ADMITTED FOR FURTHER EVALUATION AND TREATMENT OF RIGHT HAND ABSCESS AND CELLULITIS. HE WAS STARTED ON NORMAL SALINE AT 125ML/HR, VANCOMYCIN 1GM IV Q12H, ZOSYN 3.375G IV TID, TORADOL 30MG IV Q6H PRN, AND LOVENOX 30MG SC BID. WE CONSULTED FOR POSSIBLE I&D. WE FOLLOWED UP WITH AM LABS AND CONTINUED TO MONITOR. DAY TWO, DR. OBREGON CONSULTED PATIENT AND PERFORMED AN excisional debridement of abscess and necrotic tissue of the right hand. The abscess was measuring 3 X 3 cm on the medial aspect of the dorsum of the right hand. dr. obregon stated the patient could be observed until later on today and we could probably discharge him home today and follow him in the office in 24 hours. WBCs back within normal range at 9.6. All other labs are within normal range for patient. vitals were stable. we planned for discharge. instructions for medications and follow up were discussed with patient and family, both voiced understanding. patient discharged home in stable condition with family. - Discharge Medications Discharge Medications: Home Medication List clindamycin HCl 300 mg PO Q6H #30 cap 10/16/18 [Rx] hydrocodone-acetaminophen [Roby] 1 tab PO Q6H #20 tab 10/16/18 [Rx] Prescriptions: clindamycin HCl DEANA OBREGON hydrocodone-acetaminophen [Roby] Tin Gonzales - Discharge Disposition Discharge Disposition: patient to follow up with dr. obregon in his office on the next available appointment time.
== END 2018-10-16 17:35 | disposition home or self-care (01) | DRG 580 ==
LOC: ER 20:00 → MED/SURG 10-15 01:33
PROVIDERS: ADMIT Internal Medicine; ATTEND Internal Medicine
DX: L03.113 Cellulitis of right upper limb; B95.62 Methicillin resistant Staphylococcus aureus infection as the cause of diseases classified elsewhere; L02.511 Cutaneous abscess of right hand
CPT/HCPCS: 20610; 36415; 80053; 82550; 82553; 83605; 83735; 84484; 85025; 87040; 87070; 87075; 87077; 87186; 87205; 93005; 96365; 96367; 96374; 96375; 99283; 99284; A4222; J1650; J1885; J2250; J2543; J2704; J3010; J3370; J3490; J7030; J7050; J7120